=== PATIENT | female | born 1975 ===

== ENCOUNTER 2018-01-02 07:59 | Day surgery (SDC) | payer OTHER ==
[~2018-01-02 07:59] MED LIST: BALANCED B-100100 MG PO; CALCI-MIX500 MG PO; CRITIC-AID CLEAR4 GM PO; FOLIC ACID0.4 MG PO; INFUVITE50 ML IV; ZINC LOZENGES1 EACH PO
[2018-01-02] MEDS ORDERED: PERCOCET 5-3251 EACH PO ×2 (15:06→15:07)
== END 2018-01-02 17:50 | disposition home or self-care (01) ==
LOC: CIR.AMB 07:59
DX: Z30.2 Encounter for sterilization (principal); Z64.1 Problems related to multiparity